=== PATIENT | female | born 1985 | race Caucasian/White ===

== ENCOUNTER 2017-07-25 18:03 | Emergency (ER) | payer BC ==
[~2017-07-25] VITALS: Ht 152.4 cm; Wt 84.5 kg
[2017-07-25 18:14] VITALS: BP 126/72; Ht 152.4 cm; Wt 84.5 kg
== END 2017-07-25 18:56 | disposition home or self-care (01) ==
LOC: ED 18:03
DX: N39.0 Urinary tract infection, site not specified (principal)

== ENCOUNTER 2018-04-10 06:01 | Emergency (ER) | payer BC ==
[~2018-04-10] VITALS: Ht 152.4 cm; Wt 83.9 kg
[2018-04-10 06:19] VITALS: BP 121/85; Ht 152.4 cm; Wt 83.9 kg
== END 2018-04-10 07:14 | disposition home or self-care (01) ==
LOC: ED 06:01
DX: N30.90 Cystitis, unspecified without hematuria (principal); N39.0 Urinary tract infection, site not specified